=== PATIENT | male | born 1960 | race African-American/Black ===

== ENCOUNTER 2020-10-02 02:46 | Emergency (ER) | payer OTHER, SELFPAY ==
[2020-10-02] VITALS (29 sets, daily range): BP systolic 125–149; BP diastolic 81–97; PULSE 80–119; RESP 7–23; TEMP 36.6; O2SAT 95–100
--- NOTE | ~2020-10-02 | XR_ITS ---
XR chest 1V portable DATE: 10/02/2020 03:04 INDICATION: Shortness of breath TECHNIQUE: Portable AP chest on 10/02/2020 at 0300 hours COMPARISON: None FINDINGS: There is minimal bibasilar infiltrate or atelectasis. The lungs are otherwise clear. No ple ural effusion or pulmonary vascular congestion or pneumothorax. Heart size appears within normal range. There is mild aortic unfolding. No hilar or mediastinal enlar gement. IMPRESSION: Minimal infiltrate or atelectasis is suggested at the lung bases Reviewed, dictated and finalized at location A.
--- NOTE | ~2020-10-02 | CT_ITS ---
EXAMINATION: CTA chest PE protocol DATE: 10/02/2020 07:03 CDT INDICATION: Shortness of breath. Recent surgery. TECHNIQUE: Computed tomographic angiography (CTA) of the chest was performed with 100 mL Omnipaque-35 0 intravenous contrast. The dose-length product was 270.34 mGy-cm. Maximum intensity projection 3D-re constructions of the aorta and other arteries were constructed by the technologist on a separate work station. Automated exposure control and iterative reconstruction technique were employed. COMPARISON: None. FINDINGS: Study is technically adequate without evidence for pulmonary embolism. No thoracic lymphade nopathy. No evidence for aortic aneurysm or dissection. No endobronchial lesion. Bibasilar dependent atelectasis. No focal pneumonia. There is evidence for chronic granulomatous disease. In the lungs an d spleen. Fatty infiltration of the liver. There is 2.1 cm left adrenal adenoma. IMPRESSION: 1. No evidence for pulmonary embolism. No acute cardiopulmonary disease. Reviewed, dictated and finalized at location A.
--- NOTE | 2020-10-02 02:50 | ECG_ITS ---
Measurements Intervals Kathleen Rate: 83 P: 55 MO: 145 QRS: 63 QRSD: 85 T: 72 QT: 357 QTc: 421 Interpretive Statements SINUS RHYTHM POSSIBLE LEFT ATRIAL ENLARGEMENT POSSIBLE LEFT VENTRICULAR HYPERTROPHY CANNOT RULE OUT SEPTAL INFARCT, AGE INDETERMINATE ST ELEVATION IN ANTERIOR LEADS- PROBABLY EARLY REPOLARIZATION ABNORMALITY ABNORMAL ECG Electronically Signed On 10-02-2020 6:44:26 CDT by Rip Landeros D.O.
--- NOTE | 2020-10-02 03:20 | PC.NURSE ---
Assumed care of pt at this time. Pt alert, resting on stretcher.
[2020-10-02 03:24] LABS: Basophils Percent Auto 0.9 % (0.2-1.2); Eosinophils Percent Auto 0.9 % (0-4.4); Hematocrit 37.6 % (42.0-52.0); Hemoglobin 12.4 g/dL (14.0-18.0); Lymphocytes Absolute Auto 2.18 K/mm3 (0.9-3.2); Mean Corpuscular Hemoglobin 35.9 pg (26-34); Mean Platelet Volume 8.9 fl (7.4-10.4); Monocytes Absolute Auto 0.4 K/mm3 (0.1-0.6); Monocytes Percent Auto 11.8 % (2.6-8.5); Neutrophils Absolute Auto 0.8 K/mm3 (1.3-6.7); Neutrophils Percent Auto 23.4 % (45.5-73.1); Platelet Count Result 137 k/mm3 (150-375); Red Blood Count 3.45 M/mm3 (4.6-6.20); White Blood Count 3.5 K/mm3 (4.5-10.0)
[2020-10-02 03:35] LABS: Anion Gap 9 mmol/L (8-16); Blood Urea Nitrogen 7 mg/dL (9-20); Calcium 9.1 mg/dL (8.4-10.2); Carbon Dioxide 27 mmol/L (22-30); Chloride 103 mmol/L (98-107); Estimated CRCL calculation 101 ml/min; Estimated Glomerular Filt Rate > 60; Glucose 91 mg/dL (65-110); Sodium 139 mmol/L (137-145)
--- NOTE | 2020-10-02 05:36 | ED.GENADULT ---
HPI - General Adult General Chief complaint: Shortness of Breath/Dyspnea Stated complaint: DIFF. BREATHING X 2-3 DAYS Time Seen by Provider: 10/02/20 02:51 History of Present Illness HPI narrative: Patient presents with shortness of breath. Reports he has had shortness of breath for several years however tonight seem to be worse so he decided to come in for evaluation. Describes a sensation of difficulty getting air and feeling like he is going to pass out. Denies any associated pain, nausea, vomiting, diaphoresis. Reports he is an active smoker and has been since he is 10 years old. Reports does not see physicians regularly Related Data Allergies Allergy/AdvReac Type Severity Reaction Status Date / Time No Known Allergies Allergy Verified 10/02/20 02:51 Review of Systems Review of Systems: CONSTITUTIONAL: Denies fever, chills, or sweats. EYES: Denies visual changes, redness, or discharge. ENT: Denies rhinorrhea, congestion, sore throat, or otalgia. CARDIOVASCULAR: Denies chest pain, palpitations, or edema. RESPIRATORY: Denies cough GASTROINTESTINAL: Denies abdominal pain, nausea, vomiting, or diarrhea. GENITOURINARY: Denies dysuria or hematuria. SKIN: Denies rash or itching. MUSCULOSKELETAL: Denies back pain, joint pain, or myalgia. NEUROLOGIC: Denies headache, numbness, dizziness, or weakness. PSYCHIATRIC: Denies anxiety or depression. All systems reviewed & are unremarkable except as noted in HPI and below PMFSH Social History Social History Gender identity (if verbalized by the patient): Male Sexual Orientation (if Verbalized by the Patient): Straight or Heterosexual Exam Narrative: GENERAL: Well-appearing, well-nourished, and in no acute distress. HEAD: Normocephalic, atraumatic. EYES: PERRLA and EOMI. ENT: Nares clear, no rhinorrhea or epistaxis. Mucous membranes moist. NECK: Supple. No masses. No JVD CHEST: Clear to auscultation. No respiratory distress. No wheezes rales or rhonchi HEART: Regular rate and rhythm. No murmur heard. Normal peripheral pulses. ABDOMEN: Soft, nontender, nondistended, normal active bowel sounds. EXTREMITIES: Normal range of motion. No edema. SKIN: Warm, dry, no rash. NEURO: No focal deficits. Alert and oriented x3. PSYCH: Normal mood and affect. Course Reevaluation(s) Reevaluation #1: PT resting comfortably no tachycardia or hypoxia. Date: 10/02/20 Time: 05:37 Reevaluation #2: Patient continues to be resting comfortably labs and imaging and plan reviewed with patient. Patient comfortable with the outpatient plan. Date: 10/02/20 Time: 07:41 Vital Signs Vital signs: Vital Signs Temperature 36.6 C 10/02/20 02:48 Pulse Rate 84 10/02/20 02:48 Respiratory Rate 12 10/02/20 02:48 Blood Pressure 129/97 H 10/02/20 02:48 Pulse Oximetry 100 10/02/20 02:48 Temperature 36.6 C 10/02/20 02:48 Pulse Rate 93 10/02/20 06:42 Respiratory Rate 18 10/02/20 06:42 Blood Pressure 128/85 10/02/20 06:42 Pulse Oximetry 98 10/02/20 06:42 Medical Decision Making MDM Narrative Medical decision making narrative: H&P as above, vss, pt looks clinically well, exam reassuring, labs clinically unremarkable, img clinically unremarkable, additional labs/img considered, symptomatic relief available as needed, on reevaluation pt continues to looks clinically well. Symptoms are of unclear etiology given smoking history patient developing COPD or emphysema. Low concern for PE, ACS, pneumonia, severe sepsis. plan to tx/monitor as op w/ pcm f/u findings/plan discussed with pt, pt agree/comfortable with plan, return precautions given Vital Signs Vital Signs: Vital Signs Temperature 36.6 C 10/02/20 02:48 Pulse Rate 84 10/02/20 02:48 Respiratory Rate 12 10/02/20 02:48 Blood Pressure 129/97 H 10/02/20 02:48 Pulse Oximetry 100 10/02/20 02:48 Temperature 36.6 C 10/02/20 02:48 Pulse Rate 93 10/02/20
[2020-10-02 07:06] LABS: Troponin I < 0.012 ng/mL (0.000-0.034)
--- NOTE | 2020-10-02 08:00 | PC.NURSE ---
pt ride contacted to bring pt clothes and to provide ride home
== END 2020-10-02 08:00 | disposition home or self-care (01) ==
PROVIDERS: Emergency Provider Emergency Medicine
DX: R06.02 Shortness of breath (principal); F17.200 Nicotine dependence, unspecified, uncomplicated; R94.31 Abnormal electrocardiogram [ECG] [EKG]
CPT/HCPCS: 36415; 71045; 71275; 80048; 84484; 85025; 93005; 99284; Q9967

== ENCOUNTER 2021-03-26 10:31 | Outpatient (CLI) | payer OTHER, SELFPAY ==
[2021-03-26 11:16] LABS: Alanine Aminotransferase 114 U/L (4-50); Albumin Level 4.8 g/dL (3.5-5.1); Alkaline Phosphatase 105 U/L (38-126); Anion Gap 12 mmol/L (8-16); Aspartate Amino Transferase 181 U/L (17-59); Bilirubin,Total 1.1 mg/dL (0.2-1.3); Blood Urea Nitrogen 10 mg/dL (9-20); Calcium 9.6 mg/dL (8.4-10.2); Carbon Dioxide 23 mmol/L (22-30); Chloride 102 mmol/L (98-107); Cholesterol 204 mg/dL (0-200); Estimated Glomerular Filt Rate > 60; Glucose 112 mg/dL (65-110); HDL Direct 83 mg/dL; Potassium 4.6 mmol/L (3.4-5.0); Sodium 137 mmol/L (137-145); Triglycerides 76 mg/dL (<150)
[2021-03-26 11:29] LABS: LDL Cholesterol Direct 94 mg/dL
[2021-03-26 11:48] LABS: Prostate Specific Antigen 0.5 ng/mL (< OR = 4.0)
[2021-03-30 15:47] LABS: Testosterone Total 956 ng/dL (250-1100)
== END 2021-03-26 10:32 | disposition home or self-care (01) ==
LOC: ANHLAB 10:34
PROVIDERS: PCP Emergency Medicine; Visit Provider Emergency Medicine
DX: Z12.5 Encounter for screening for malignant neoplasm of prostate (principal); I10 Essential (primary) hypertension
CPT/HCPCS: 36415; 80053; 80061; 84153; 84402; 84403; 84443; G0103

== ENCOUNTER 2021-03-30 15:30 | Outpatient (CLI) | payer OTHER, SELFPAY ==
[2021-03-30 17:13] LABS: Hepatitis B Surface Antigen Negative (Negative)
[2021-03-30 17:19] LABS: HAV RESULT Negative (Negative); Hepatitis B Core IgM Result Negative (Negative)
[2021-03-30 17:31] LABS: Hepatitis C Virus Antibody Negative (Negative)
== END 2021-03-30 15:31 | disposition home or self-care (01) ==
PROVIDERS: PCP Emergency Medicine; Visit Provider Emergency Medicine
DX: R74.01 Elevation of levels of liver transaminase levels (principal); F10.10 Alcohol abuse, uncomplicated
CPT/HCPCS: 36415; 80074